=== PATIENT | male | born 1980 | race Caucasian/White ===

== ENCOUNTER 2020-08-16 14:14 | Emergency (ER) | payer BC, OTHER ==
[~2020-08-16] VITALS: Ht 188 cm; Wt 106.9 kg
--- NOTE | 2020-08-16 14:27 | NUR ---
PT HAS C/O ABD PAIN SINCE 1300 TODAY. STATES IS BY HIS "BELLY BUTTON." HX OF KIDNEY STONES. +NAUSEA.
--- NOTE | 2020-08-16 14:32 | NUR ---
ERMD AT BEDSIDE.
[2020-08-16] MEDS ORDERED: SODIUM CHLORIDE 0.9% 1,000ML IVBOLUS ONE (15:00)
[2020-08-16] MEDS ORDERED: SODIUM CHLORIDE FLUSH 10ML SYR IVF ONE (15:00)
[2020-08-16] MEDS ORDERED: MORPHINE SULFATE 4 MG/ML, 1ML IVPush ONE (15:00)
[2020-08-16] MEDS ORDERED: ONDANSETRON 2MG/ML, 2ML IVPush ONE (15:00)
[2020-08-16 15:08] LABS: BASOPHILS % (AUTO) 1 % (0-1); EOSINOPHILS % (AUTO) 1 % (1-7); LYMPHOCYTES % (AUTO) 16 % (22-44); MEAN CORPUSCULAR HGB CONC 34.6 g/dL (33.2-36.2); MEAN PLATELET VOLUME 7.7 fL (7.4-10.4); MONOCYTES % (AUTO) 9 % (2-9); NEUTROPHILS % (AUTO) 73 % (42-75); PLATELET COUNT 241 x10^3/uL (130-400); RED BLOOD COUNT 5.02 x10^6/uL (4.38-5.82); RED CELL DISTRIBUTION WIDTH 13.9 % (9.4-14.8)
[2020-08-16] MEDS ORDERED: ONDANSETRON 2MG/ML, 2ML ONE (15:08)
[2020-08-16] MEDS ORDERED: MORPHINE SULFATE 4 MG/ML, 1ML ONE (15:08)
--- NOTE | 2020-08-16 15:09 | NUR ---
PIV ACCESS OBTAINED 20 R UPPER ARM. FLUID BOLUS BEING ADMINSITERED. PT ABLE TO PROVIDE RN WITH A URINE SAMPLE. COLLECTED AND WILL SEND TO LAB. PT TO BE MEDICATED PER EMAR.
[2020-08-16 15:24] LABS: MICROSCOPIC NOT IND
[2020-08-16 15:25] LABS: CHLORIDE 109 mmol/L (98-107)
[2020-08-16 15:27] LABS: MD NO
[2020-08-16 15:31] LABS: ALANINE AMINOTRANSFERASE 30 U/L (12-78); ALKALINE PHOSPHATASE 65 U/L (45-117); ANION GAP 7 mmol/L (5-15); BILIRUBIN,TOTAL 1.1 mg/dL (0.2-1.0); CALCIUM 9.3 mg/dL (8.5-10.1); CREATININE 1.24 mg/dL (0.7-1.3); TOTAL PROTEIN 7.6 g/dL (6.4-8.2)
--- NOTE | 2020-08-16 15:40 | NUR ---
PT WAS LAYING ON GURNEY, EYES CLOSED. WHEN PT ASKED ABOUT PAIN SAYS, "IT NEVER WENT AWAY, BUT ITS A LITTLE BETTER" 09/10. CLOSED EYES AGAIN WHEN HE IS NOT BEING SPOKEN TO. NOVA SY. CALL LIGHT WITHIN REACH.
--- NOTE | 2020-08-16 16:44 | NUR ---
PRECEPTOR RN: PT DISCHARGED HOME IN A STABLE CONDITION. PIV WAS REMOVED WITH TIP INTACT. DC INSTRUCTIONS DISCUSSED WITH PT. PT VERBALIZED UNDERSTANDING. NO FURTHER QUESTIONS OR CONCERNS EXPRESSD AT THAT TIME. PT AMBULATED WITH RN TO DC DESK WITH A STEADY GAIT.
[2020-08-16 16:45] VITALS: BP 131/89
== END 2020-08-16 16:47 | disposition home or self-care (01) ==
LOC: ED 14:40
DX: R10.84 Generalized abdominal pain (principal); Z87.891 Personal history of nicotine dependence; R11.2 Nausea with vomiting, unspecified
CPT/HCPCS: 36415; 74021; 80053; 81003; 83690; 85025; 96361; 96374; 96375; 99284; J2270; J2405; J7030